=== PATIENT | female | born 1975 | race Caucasian/White ===

== ENCOUNTER → 2018-09-11 | Day surgery (SDC) | payer MEDICARE, OTHER ==
[~2018-09-11] MED LIST: ACETAMINOPHEN/CODEINE 300MG - 30MG TAB ONE; CIPRO500 MG PO; DEXAMETHASONE SOD PHOS INJ 4 MG/ML VIAL ONE; DITROPAN XL5 MG PO; FENTANYL CITRATE/PF 100MCG/2 ML INJ ONE; GENTAMICIN 120MG/NS 100ML 100 ML ONE; LIDOCAINE HCL 2% LOCAL INJ 5 ML SDV VIAL INJ ONE; METOCLOPRAMIDE HCL 10 MG/2ML VIAL ONE; MIDAZOLAM HCL 2 MG/2 ML VIAL ONE; ONDANSETRON HCL INJ 2MG/ML 2ML 2 MG/ML VIAL ONE; PROPOFOL IV EMULSION 10 MG/ML 20 ML VIAL ONE; SEVOFLURANE INHAL SOLN 250 ML PEN BTL ONE; TYLENOL WITH C1 EACH PO
--- OUTSIDE RECORDS SUMMARY | 2018-09-11 08:34 | XMS REPORT | Clinical Summary ---
Author Author [facility] Organization [facility] Address Unknown Phone Unavailable Care Team Providers Care Quality Assurance Technician Name Role Phone Polly Fletcher MD PCP Allergies No Known Allergies Medications No known medications Active Problems Not on file Encounters Care Team Description Date Type Specialty Sixto Pastor MD Uric acid nephrolithiasis (Primary Dx) 09/05/2018 Transcribe Access Orders Leonel Koehler MD 08/23/2018 Anesthesia General Surgery Event Sixto Pastor MD CYSTO RETROGRADE-Bilateral, left ureteral stent insertion 08/23/2018 Surgery General Surgery Sixto Pastor MD 08/23/2018 Hospital General Surgery Encounter Sixto Pastor MD Uric acid nephrolithiasis (Primary Dx) 08/22/2018 Transcribe Access Orders after 09/10/2017 Family History Medical History Relation Name Comments Cancer Maternal Grandfather Heart failure Mother Diabetes Paternal Grandmother Relation Name Status Comments Maternal Grandfather Mother Paternal Grandmother Social History Date Tobacco Use Types Packs/Day Years Used Never Smoker Smokeless Tobacco: Never Used Alcohol Use Drinks/Week oz/Week Comments Yes socially Sex Assigned at Date Recorded Not on file Industry Job Start Date Occupation Not on file Not on file Not on file Travel End Travel History Travel Start No recent travel history available. Last Filed Vital Signs Time Taken Vital Sign Reading 08/23/2018 5:45 PM CDT Blood Pressure 130/67 08/23/2018 5:45 PM CDT Pulse 72 08/23/2018 5:45 PM CDT Temperature 36.3 C (97.3 F) 08/23/2018 5:45 PM CDT Respiratory Rate 18 08/23/2018 5:45 PM CDT Oxygen Saturation 97% - Inhaled Oxygen - Concentration 08/23/2018 12:33 PM CDT Weight 111 kg (245 lb 12.8 oz) 08/23/2018 12:33 PM CDT Height 170.2 cm (5' 7") 08/23/2018 12:33 PM CDT Body Mass Index 38.5 Plan of Treatment Health Maintenance Due Date Last Done Comments INFLUENZA VACCINE 10/31/2018 Implants Device Identifier Shelf Expiration Date Model / Serial / Lot Implanted Type Area Manufactur er 10/29/2020 192 134 / / [id number] Stent Uretl Polrs Ult [id number] 6fr Urological N/A: N/A BSC 28cm Hydroplus W/O Gw - [id number] Implants UROLOGY Implanted: Qty: 1 on 08/23/2018 by or Sixto Estrada MD Procedures Comments Procedure Name Priority Date/Time Associated Diagnosis XR ABDOMEN 1 VW Routine 09/05/2018 Uric acid nephrolithiasis 10:[address] AN ELECTIVE Routine 08/23/2018 SUPRAGLOTTIC AIRWAY 4:26 PM CDT Procedure Note - Sabine Preciado MD - 08/23/2018 4:26 PM CDT Airway Date/Time: 08/23/2018 4:21 PM Performed by: Sabine Preciado MD Authorized by: Sabine Preciado MD Location: OR Urgency: Elective Difficult Airway: No Anesthesio logist: Sabine Preciado MD Performed by: anesthesio logist Preoxygena yair with 100% O2: Yes C-spine Precaution s Maintained Throughout : Yes Mask Ventilatio n: Not attempted Final Airway Type: Supraglott ic airway Final LMA: Unique LMA Size: 4 Number of Attempts at Approach: 1 [place] PYELOGRAM RETROGRADE Routine 08/23/2018 4:25 PM CDT ESTIMATED GFR STAT 08/23/2018 1:05 PM CDT HCG QUALITATIVE, SERUM STAT 08/23/2018 SCREEN 1:05 PM CDT PROTHROMBIN TIME WITH INR STAT 08/23/2018 1:05 PM CDT BASIC METABOLIC PANEL STAT 08/23/2018 1:05 PM CDT HC COMPLETE BLD COUNT STAT 08/23/2018 W/AUTO DIFF 1:05 PM CDT ECG 12-LEAD STAT 08/23/2018 1:01 PM CDT XR ABDOMEN 1 VW Routine 08/22/2018 Uric acid nephrolithiasis 2:33 PM CDT after 09/10/2017 Results * XR Abdomen 1 Vw (09/05/2018 10:39 AM CDT) Only the most recent of 2 results within the time period is included. Specimen Narrative Performed At EXAMINATION:XR ABDOMEN 1 VW [facility] CLINICAL HISTORY:N20.0 Calculus of kidney, n20.0 COMPARISON:To previous study from 08/23/2018 FINDINGS: A left ureteral stent is present. Small 2-4 mm calculi are projected over the mid and lower pole of the right kidney is very small calculi may be present the in the right kidney. Overlying bowel gas and feces obscure detail. No small bowel distention is appreciated. IMPRESSION: Small calculi. See above. [id number] Procedure Note Interface, Radiology Results Incoming - 09/05/2018 11:40 AM CDT EXAMINATION: XR ABDOMEN 1 VW CLINICAL HISTORY: N20.0 Calculus of kidney, n20.0 COMPARISON: To previous study from 08/23/2018 FINDINGS: A left ureteral stent is present. Small 2-4 mm calculi are projected over the mid and lower pole of the right kidney is very small calculi may be present the in the right kidney. Overlying bowel gas and feces obscure detail. No small bowel distention is appreciated. IMPRESSION: Small calculi. See above. [id number] Performing Organization Address City/State/Zipcode Phone Number [facility] [address] [place] [address] * [place] Pyelogram Retrograde (08/23/2018 4:25 PM CDT) Specimen Narrative Performed At EXAMINATION:[place] PYELOGRAM RETROGRADE [facility] INDICATION:Pain IMPRESSION: Intraoperative fluoroscopy provided. No radiologist present for procedure. Please see procedure note for details. Fluoroscopic images: 5 Fluoroscopy time: 24.3 seconds Procedure Note Interface, Radiology Results Incoming - 08/23/2018 7:33 PM CDT EXAMINATION: FL PYELOGRAM RETROGRADE INDICATION: Pain IMPRESSION: Intraoperative fluoroscopy provided. No radiologist present for procedure. Please see procedure note for details. Fluoroscopic images: 5 Fluoroscopy time: 24.3 seconds Performing Organization Address City/State/Zipcode Phone Number JEANNE JASON [address] [place] [address] * Estimated GFR (08/23/2018 1:05 PM CDT) [facility] Estimated GFR >=90 mL/min/1.73 m2 [place] Comment: [facility] G1 >=90 Normal or high G2 60-89Mildly decreased [id number] Mildly to moderately decreased [id number] Moderately to severely decreased G4 15-29Severely decreased G5 <15Kidney failure The eGFR was calculated using the Chronic Kidney Disease Epidemiology Collaboration (CKD-EPI) equation. Interpretation is based on recommendations of the National Kidney Foundation-Kidney Disease Outcomes Quality Initiative (NKF-KDOQI) published in 2014. Specimen Plasma specimen Performing Organization Address [facility] Phone Number [address] * Prothrombin time with INR (08/23/2018 1:05 PM CDT) [facility] Prothrombin 12.9 11.5 - 14.5 sec [place] time [facility] INR 1.00 [place] Comment: [facility] [place] For patients on anticoagulant JONAH therapy, reference ranges HOSPITAL below: Indication: INR Value Treatment of Venous Thrombosis, 2.0-3.0 pulmonary emboli, or prophylaxis of a venous thrombosis, or systemic emboli. High dose, high risk patients 3.0-4.5 with mechanical valves. NOTE:INR values over 3.0 are sometimes associated with gastrointestinal hemorrhage, especially values over 4.0. Specimen Blood Performing Organization Address [facility]/Zipcode Phone Number [place] [phone] PATHOLOGY [facility] [address] * CBC with platelet and differential (08/23/2018 1:05 PM CDT) WBC 7.8 4.2 - 11.0 k/uL [facility] RBC 4.28 4.04 - 5.86 m/uL [facility] HGB 11.9 11.5 - 15.3 g/dL [facility] HCT 36.9 34.0 - 45.0 % [facility] MCV 86.2 80.0 - 98.0 fL [facility] MCH 27.8 27.0 - 34.0 pg [facility] MCHC 32.2 31.5 - 36.5 g/dL [facility] RDW - SD 39.8 37.0 - 51.0 fL [facility] MPV 10.2 7.4 - 10.4 fL [facility] Platelet count 226 150 - 400 k/uL [facility] Nucleated RBC 0.00 /100 WBC [facility] Neutrophils 65.0 36.0 - 66.0 % [facility] Lymphocytes 24.3 24.0 - 44.0 % [facility] Monocytes 5.4 0.0 - 6.0 % [facility] Eosinophils 1.9 0.0 - 6.0 % [facility] Basophils 1.0 0.0 - 1.2 % [facility] Immature 2.4 (H) 0.0 - 1.0 % [place] granulocytes [facility] Specimen Blood Performing Organization Address City/State/Zipcode Phone Number [facility] [address] [place] [address] PATHOLOGY AND GENOMIC MEDICINE [address] * hCG qualitative, serum screen (08/23/2018 1:05 PM CDT) hCG Negative [place] qualitative, Comment: [facility] serum The manufacturers stated JONAH sensitivity of HcG test for HOSPITAL serum is >/=10 mIU/ml and urine is >/=20mIU/ml. Specimen Blood Performing Organization Address City/State/Zipcode Phone Number [facility] [address] [place] [address] PATHOLOGY AND GENOMIC MEDICINE [place] [phone] [address] * Basic metabolic panel (08/23/2018 1:05 PM CDT) Sodium 142 135 - 150 mEq/L [facility] Potassium 3.8 3.5 - 5.0 mEq/L [facility] Chloride 108 98 - 112 mEq/L [facility] CO2 25 24 - 31 mmol/L [facility] Anion gap 9@ANIO 7 - 15 mEq/L [facility] BUN 11 7 - 18 mg/dL [facility] Creatinine 0.70 0.50 - 0.90 mg/dL [facility] Glucose 93 65 - 100 mg/dL [facility] Calcium 10.0 8.3 - 10.2 mg/dL [facility] Specimen Plasma specimen Performing Organization Address City/State/Zipcode Phone Number [address] [address] PATHOLOGY AND GENOMIC MEDICINE [address] * ECG 12 lead (08/23/2018 1:01 PM CDT) Pathologist [facility] Ventricular 61 [facility] rate Atrial rate [address] interval 134 [facility] QRSD interval 100 [facility] QT interval 438 [facility] QTC interval 440 [facility] P axis 1 37 [facility] QRS axis 1 32 [facility] T wave axis 19 [facility] EKG impression Normal sinus rhythm-Normal [facility] ECG-No previous ECGs available- Specimen Narrative Performed At Performing Organization Address City/State/Zipcode Phone Number [facility] [address] [place] [address] after 09/10/2017 Insurance Type Payer Benefit Subscriber ID Effective Phone Address Plan / Dates Group HMO AETNA AETNA xxxxxxxxxx [id number] HMO,POS,EP resent O, MC/EC Advance Directives Patient has advance care planning documents on file. For more information, julio hamilton contact: Anthony Quezada [address] [place] [address]
[2018-09-11 15:00] VITALS: BP 133/80
--- NOTE | 2018-09-12 07:34 | Operative Report ---
DATE OF PROCEDURE: 09/11/2018 SURGEON: Alex Gagnon MD PREOPERATIVE DIAGNOSES: 1. Right renal calculus. 2. Left renal calculi. a. A. Upper pole calyx. b. B. Mid pole calyx. c. C. Lower pole calyx. 3. Left double-J stents. POSTOPERATIVE DIAGNOSES: 1. Right renal calculus. 2. Left renal calculi. a. A. Upper pole calyx. b. B. Mid pole calyx. c. C. Lower pole calyx. 3. Left double-J stents. OPERATION: 1. Left renal ESWL for all the stones. 2. Cystoscopy and stent removal. SURGEON: Sixto Pastor MD. CANOPY STRINGER: Jordan Leyva ANESTHESIA: General. DESCRIPTION OF PROCEDURE: Ms. Flannery is a 43-year-old female, who presented with a chief complaint of acute renal pain and on workup was noted to have calculi in all calices upper, mid, lower pole calices and had right renal calculus about 9 mm. Because the stones on the left side were more symptomatic, it was elected to go ahead stones on the left side. This patient was placed on the table in the supine position and the upper pole calyx stone was brought into position between F1 and F2 of the fluoroscopic monitor. The lithotripsy was started, starting at 2 kilovolts and slowly and gradually increased to 7 kilovolts. At 2000 shocks, it was felt that the stone has completely pulverized. We then moved to the mid pole calyx and 1000 shocks were delivered and that stone pulverized completely. Finally, we moved to the lower pole calyx and again another 1000 shocks were delivered and observation of the stone pulverization was done at 200 to 250 shocks and at 1000, it was felt that was completely pulverized. The patient was then placed on the table in the lithotomy position and was prepped and draped in a sterile manner. Cystoscopy was then performed using the Foroblique lens and the scope was passed through the urethra to the bladder. The bladder was drained. Under direct vision and fluoroscopic control, the tail end of the stent was grasped and the stent was removed completely. The patient tolerated the procedure well and was taken to the recovery room in satisfactory condition. She is to return to the office in about 1-2 weeks where at that time a KUB will be performed and observation of the stone on the left side will be evaluated and so does the right stone. DISCHARGE MEDICATION: 1. Cipro 500 mg one twice a day. 2. Ultracet tablet one every 4-6 hours p.r.n. MD ROBERTO Montes/ROSIBEL /[id number]
== END | disposition home or self-care (01) ==
LOC: OR 08:10
PROVIDERS: ATTEND Specialist
DX: N20.0 Calculus of kidney (principal); Z46.6 Encounter for fitting and adjustment of urinary device; F41.9 Anxiety disorder, unspecified
CPT/HCPCS: 50590; 52310; 81025; 88300; C1758; J1100; J1580; J2001; J2250; J2405; J2704; J2765